=== PATIENT | male | born 1975 | race Caucasian/White ===

== ENCOUNTER 2017-12-17 23:24 | Emergency (ER) | payer OTHER ==
[~2017-12-17] VITALS: Ht 188 cm; Wt 120.7 kg
[2017-12-18 02:23] VITALS: BP 134/91
== END 2017-12-18 02:23 | disposition home or self-care (01) ==
LOC: ED 23:24
DX: L23.7 Allergic contact dermatitis due to plants, except food (principal)
CPT/HCPCS: J1100; J7512

== ENCOUNTER 2020-03-15 01:46 | Emergency (ER) | payer OTHER ==
[~2020-03-15] VITALS: Ht 188 cm; Wt 131.5 kg
[2020-03-15 01:56] VITALS: Ht 188 cm; Wt 131.5 kg
[2020-03-15 03:41] LABS: BASOPHIL % 0.8 % (0.2-1.5); PLATELET COUNT 243 x10^3mcL (152-348); RED CELL DISTRIBUTION WIDTH 12.9 % (12.1-16.2)
[2020-03-15 04:00] LABS: CALCIUM 8.4 mg/dL (8.5-10.1); CARBON DIOXIDE 28.5 mmol/L (21-32); CHLORIDE SERUM 108 mmol/L (98-107); CREATININE SERUM 1.1 mg/dL (0.7-1.3); GFR1 > 60 mL/min; GLUCOSE SERUM 106 mg/dL (74-106); POTASSIUM SERUM 3.9 mmol/L (3.5-5.1); SODIUM SERUM 146 mmol/L (136-145)
[2020-03-15 04:06] LABS: ALBUMIN 3.6 g/dL (3.4-5.0); ALKALINE PHOSPHATASE 51 U/L (46-116); ALT/SGPT 51 U/L (16-63); AST/SGOT 15 U/L (15-37); BILIRUBIN TOTAL 0.3 mg/dL (0.20-1.00); TOTAL PROTEIN, SERUM 6.5 g/dL (6.4-8.2)
[2020-03-15 05:36] VITALS: BP 130/79
== END 2020-03-15 05:36 | disposition home or self-care (01) ==
LOC: ED 01:46
PROVIDERS: Emergency Medicine
DX: N20.0 Calculus of kidney (principal)
CPT/HCPCS: J1885; J2405; J7030